=== PATIENT | male | born 1940 | race Caucasian/White ===

== ENCOUNTER 2022-07-02 11:19 | Day surgery (SDC) | payer MEDICARE, SELFPAY ==
--- NOTE | 2022-07-02 | PATH_ITS ---
[facility] Accession Number: [id number] . 01 Material submitted: . colon - COLON BIOPSIES . 01 Diagnosis: Colon, Biopsies: Colonic mucosa with no diagnostic abnormality. Negative for active, chronic, and microscopic colitis. Negative for dysplasia and malignancy. . MRV 07/05/2022 1743 Local . 01 Electronically signed: . Nish Daniel MD, PhD, Pathologist NPI- [id number] . 01 Gross description: . The specimen is received in formalin, labeled with the patient's name and colon biopsies, and consists of three irregular day soft tissue fragments ranging from 0.1 cm to 0.2 cm in greatest dimension. Submitted entirely in cassette A1. ([id number]) /FRR 07/05/2022318 Local . 01 Pathologist provided ICD-10: D50.0, R19.7 . 01 CPT . 145431 Specimen Comment: A courtesy copy of this report has been sent to [phone] Performed at: 01 [facility] [address] [place] [address] [id number] MD Hi Ibarra MD Phone: [phone]
[2022-07-02] MEDS: SODIUM CHLORIDE 0.9% 1,000 ML 84 ML IV (11:36)
[2022-07-02 11:52] LABS: COVID19 -Nasal RAPID Negative (Negative)
[2022-07-02 12:03] VITALS: BP 151/80; PULSE 99; RESP 16; TEMP 36.7; O2SAT 99; BMI 28.8
--- NOTE | 2022-07-02 13:08 | PM.HP.1 ---
History of Present Illness History of Present Illness Date Patient Seen: 07/02/22 Time Patient Seen: 13:09 Chief complaint: DX COLONOSCOPY Narrative: I reviewed the note from Reyna Lind. No significant changes with the exception of starting to gain weight. Patient History Family & Social History Social History: household members spouse Tobacco & Substance use: Smoking Status Former smoker alcohol intake former Substance Use Type does not use Meds Home Medications and Allergies Home Medications Medication Instructions Recorded Confirmed Type acetaminophen 325 mg capsule 500 mg PO PRN PRN Pain (Scale 07/02/22 07/02/22 History (Tylenol) Score 1-3) albuterol 90 mcg/actuation aerosol 1 mcg inhalation DAILY PRN 07/02/22 07/02/22 History inhaler Bronchodilation candesartan 4 mg tablet 2 mg PO DAILY 07/02/22 07/02/22 History tadalafil 5 mg tablet (Cialis) 5 mg PO DAILY 07/02/22 07/02/22 History tizanidine 2 mg tablet 2 mg PO BID PRN Headache 07/02/22 07/02/22 History Allergies Allergy/AdvReac Type Severity Reaction Status Date / Time No Known Drug Allergies Allergy Verified 07/02/22 11:43 Review of Systems Review of Systems ROS: Yes All systems reviewed with the patient and are negative except as otherwise documented Exam Vital Signs (past 8 hours): - 07/02/22 12:03 Temperature 98.1 F Pulse Rate 99 H Respiratory Rate 16 Blood Pressure 151/80 H Pulse Oximetry 99 Oxygen Delivery Method Room Air Oxygen Delivery Method Room Air Const General: cooperative HENMT Head: normal to inspection Eyes General: appearance normal, both eyes and all related structures Neck Neck: normal visual inspection Chest Chest: normal inspection of the chest Resp Effort & Inspection: normal respiratory effort Cardio Rate: regular rate GI Inspection: normal to inspection Skin General: no rashes or lesions noted Neuro General: patient alert and patient awake Extrem General: normal to inspection and no pedal edema Psych Appearance: grossly normal Objective Labs Labs: Laboratory Results - last 24 hr 07/02/22 11:32 SARS-CoV-2 (PCR) Negative Assessment & Plan Assessment & Plan narrative: 81-year-old male with a history of recent chronic diarrhea for 6+ months associated with weight loss and anemia. Symptoms have largely resolved at this point. Colonoscopy is pursued today to exclude neoplasia and/or microscopic colitis. Time Spent With Patient Critical Care time: I spent a total of [] minutes of critical care time on this patient's care today; this time is exclusive of procedural time.
--- NOTE | 2022-07-02 13:10 | PM.PREOP ---
Pre-operative Note COVID-19 COVID-19 status: Negative Result date/Date tested (Pos, Neg/Pending): 07/02/22 Criteria for continued procedure: Possibility delay results in more complex future surgery or treatment Interval Note History & Physical reviewed/Exam performed by Physician: Yes Changes to H&P: Yes ASA Class (for procedural sedation): II
--- NOTE | 2022-07-02 14:16 | P.OP.COLON_ITS ---
Operative Date/Time/Diagnoses Date of procedure: 07/02/22 Time of procedure: 14:16 Pre-op diagnosis: Anemia weight loss diarrhea Post-op diagnosis: same Procedure & Clinicians Study performed: Colonoscopy with biopsies Same procedure as scheduled: Yes Indications: Anemia weight loss diarrhea Surgeon: Philippe Michel Procedure Notes SCOAP/Timeout: Done Procedure in detail: After the risks and benefits were explained, written and verbal informed consent was obtained. The patient was brought into the procedure room and placed into the left lateral decubitus position. Please see nurse temporary administrative assistant notes for sedation details. Digital rectal examination was accomplished. The scope was introduced into the patient and advanced under direct visualization to the cecum as identified by the appendiceal orifice and ileocecal valve. The scope was slowly withdrawn to carefully examine the mucosa for any defects or lesions. Comprehensive imaging was accomplished throughout the rectum including the dentate line. The colon was decompressed, the scope was then removed from the patient who tolerated the procedure well. Initially we attempted this procedure with a pediatric colonoscope. The patient has an extremely long redundant colon and the scope was hugged perhaps somewhere in transverse colon. We had to swap this scope out for an adult scope. Prolonged procedure time and therefore 22 modifier is requested. Bowel prep adequate Scope withdrawal time: 11 minutes Sedation minutes: 47 Complications: none Impression: The patient had an extremely long redundant colon. Procedure time was prolonged. No significant polyps mass lesions or inflammatory features. Using abdominal pressure, patient position changes, the stiffening osbaldo, and swapping out scopes as described above we were able to eventually arrived in the cecum. Secondary to the extreme degree of difficulty I was only able to see the very distal aspect of terminal ileum which appeared normal. On the way back random colon biopsies were taken for exclusion of microscopic colitis. Grade 2 hemorrhoids were noted on direct views. Endoscopic diagnosis 1. Grade 2 hemorrhoids 2. Long redundant colon 3. Difficult navigation Post-procedure Plan for aftercare: 1. Await histopathology. 2. Fiber based bowel regimen. 3. Follow up GI clinic Disposition: PACU
[2022-07-02 14:19] VITALS: BP 104/57; PULSE 63; RESP 16; TEMP 36.1; O2SAT 98
[2022-07-02 14:24] VITALS: BP 125/58; PULSE 65; RESP 14; O2SAT 98
[2022-07-02 14:29] VITALS: BP 133/58; PULSE 66; RESP 16; O2SAT 98
[2022-07-02 14:39] VITALS: BP 125/59; PULSE 56; RESP 18; O2SAT 98
[2022-07-02 14:55] VITALS: BP 145/63; PULSE 55; RESP 16; TEMP 36.4; O2SAT 99
== END 2022-07-02 15:10 | disposition home or self-care (01) ==
PROVIDERS: PCP Family Medicine; Referring Provider Internal Medicine Gastroenterology; Visit Provider Internal Medicine Gastroenterology
PROC: 0DJD8ZZ Inspection of Lower Intestinal Tract, Via Natural or Artificial Opening Endoscopic (ICD-10-PCS; CPT 45378; principal; 2022-07-02 12:30)
DX: R19.7 Diarrhea, unspecified (principal); D64.9 Anemia, unspecified; G47.33 Obstructive sleep apnea (adult) (pediatric); I10 Essential (primary) hypertension; R63.4 Abnormal weight loss; Z68.29 Body mass index [BMI] 29.0-29.9, adult; Z20.822 Contact with and (suspected) exposure to COVID-19; K64.1 Second degree hemorrhoids
CPT/HCPCS: 45380; 87635; C9803; J2704